=== PATIENT | male | born 1945 | race Caucasian/White ===

== ENCOUNTER 2016-06-15 06:19 | Day surgery (SDC) | payer BC, MEDICAID, MEDICARE, OTHER ==
[2016-06-15] MEDS ORDERED: Lactated Ringers 1,000 ML IV SCH (07:00)
[2016-06-15] MEDS ORDERED: fentaNYL 100 MCG/2 ML SDV ONE (07:35)
[2016-06-15] MEDS ORDERED: Propofol 200 MG/20 ML SDV ONE (07:35)
[2016-06-15] MEDS ORDERED: Midazolam 1 MG/ML 2 ML SDV ONE (07:36)
[2016-06-15 09:23] VITALS: BP 147/77
--- NOTE | 2016-06-18 07:35 | OR ---
DATE OF PROCEDURE: 06/15/2016 PREOPERATIVE DIAGNOSIS: History of adenomatous colon polyps. POSTOPERATIVE DIAGNOSIS: Rectal polyp, history of adenomatous colon polyps. PROCEDURE PERFORMED: Colonoscopy to the cecum with snare cautery polypectomy of rectal polyp. ANESTHESIA: IV anesthesia with monitored anesthesia care. INDICATION: This 70-year-old white male is referred for a colonoscopy. He has a history of adenomatous colon polyps. Apparently, he had a poor colonoscopy prep and he says he still has some polyps in him, and he underwent a 2-day prep this time. I counseled him for a colonoscopy with possible biopsy and/or polypectomy including risks and alternatives, and he gave his informed consent to proceed. DESCRIPTION OF PROCEDURE: The patient was placed in the left lateral decubitus position. IV anesthesia was administered by the Anesthesia Service. Time-out was held. A rectal exam was performed, which was unremarkable. The flexible video Olympus colonoscope was introduced through his anus, up his rectum, and out his colon all the way to the cecum. Once the cecum was reached, the scope was slowly withdrawn examining the mucosa throughout. The prep was good. No mucosal abnormalities were noted until we reached the rectum, here we saw a polyp that was too large to remove using the biopsy forceps. The snare was passed about its base, it was elevated up away from the bowel wall and amputated as electrocautery was applied. The polyp was aspirated through the scope and captured in a polyp trap. The scope was retroflexed in the rectum with the distal rectum appearing unremarkable. The scope was straightened and removed. He tolerated the procedure well. Obie Puckett MD /[id number] MTDJia
== END 2016-06-15 09:30 | disposition home or self-care (01) ==
LOC: JP.SDS 06:19
PROVIDERS: ATTEND Surgery
PROC: 0DBP8ZX Excision of Rectum, Via Natural or Artificial Opening Endoscopic, Diagnostic (ICD-10-PCS; principal; 2016-06-15)
DX: D12.8 Benign neoplasm of rectum (principal); Z88.0 Allergy status to penicillin; Z88.2 Allergy status to sulfonamides
CPT/HCPCS: 45385; 88305; J2250; J2704; J3010; J7120

== ENCOUNTER 2017-07-17 07:06 | Day surgery (SDC) | payer OTHER ==
[~2017-07-17 07:06] MED LIST: Lactated Ringers 1,000 ML IV SCH
[2017-07-17] MEDS ORDERED: Lactated Ringers 1,000 ML IV SCH (07:15)
[2017-07-17] MEDS ORDERED: Midazolam 1 MG/ML 2 ML SDV ONE (08:11)
[2017-07-17] MEDS ORDERED: fentaNYL 100 MCG/2 ML SDV ONE (08:11)
[2017-07-17] MEDS ORDERED: Propofol 200 MG/20 ML SDV ONE (08:11)
--- NOTE | 2017-07-17 09:59 | OR ---
DATE OF PROCEDURE: 07/17/2017 PREOPERATIVE DIAGNOSIS: History of adenomatous colon polyps. POSTOPERATIVE DIAGNOSES: 1. Unremarkable colonoscopy. 2. History of adenomatous colon polyps. SURGEON: Obie Puckett MD. PROCEDURE: Colonoscopy to the cecum. ANESTHESIA: IV anesthesia with monitored anesthesia care. INDICATION: This 71-year-old white male is here for a colonoscopy because of a history of multiple adenomatous polyps in the past. A year ago, he had a large rectal polyp removed. I counseled him for the procedure including risks and alternatives, and he gave his informed consent to proceed. DESCRIPTION OF PROCEDURE: The patient was placed in the left lateral decubitus position. IV anesthesia was administered by the Anesthesia Service. Time-out was held. A rectal exam was performed, which was unremarkable. The flexible video Olympus colonoscope was introduced through his anus, up his rectum, and out his colon all the way to the cecum. Once the cecum was reached, the scope was slowly withdrawn, examining the mucosa throughout. No mucosal abnormalities were noted. The scope was retroflexed in the rectum with the distal rectum appearing unremarkable. The scope was straightened and removed. He tolerated the procedure well. Obie Puckett MD /[id number] MTDD
[2017-07-17 10:19] VITALS: BP 123/86
== END 2017-07-17 10:40 | disposition home or self-care (01) ==
LOC: JP.SDS 07:06
PROVIDERS: ATTEND Surgery
DX: Z09 Encounter for follow-up examination after completed treatment for conditions other than malignant neoplasm (principal); F17.210 Nicotine dependence, cigarettes, uncomplicated; E78.5 Hyperlipidemia, unspecified; J43.9 Emphysema, unspecified; Z86.010 Personal history of colon polyps; Z88.0 Allergy status to penicillin; Z88.2 Allergy status to sulfonamides; Z99.81 Dependence on supplemental oxygen; Z79.899 Other long term (current) drug therapy; Z79.51 Long term (current) use of inhaled steroids
CPT/HCPCS: 45378; J2250; J2704; J3010; J7120

== ENCOUNTER 2019-05-04 07:33 | Emergency (ER) | payer OTHER ==
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
[2019-05-04 09:47] VITALS: BP 145/66; PULSE 84
== END 2019-05-04 09:47 | disposition home or self-care (01) ==
LOC: JP.ED 07:33
DX: S60.512A Abrasion of left hand, initial encounter (principal); R41.3 Other amnesia; F32.9 Major depressive disorder, single episode, unspecified; J44.9 Chronic obstructive pulmonary disease, unspecified; F17.210 Nicotine dependence, cigarettes, uncomplicated; Z79.899 Other long term (current) drug therapy; Z98.49 Cataract extraction status, unspecified eye; Z90.49 Acquired absence of other specified parts of digestive tract; Z98.890 Other specified postprocedural states; Z88.0 Allergy status to penicillin; Z88.2 Allergy status to sulfonamides; V47.5XXA Car driver injured in collision with fixed or stationary object in traffic accident, initial encounter
CPT/HCPCS: 36415; 70450; 70450-26; 80053; 80307; 81001; 85025; 99285-25

== ENCOUNTER 2023-04-11 08:27 | Day surgery (SDC) | payer OTHER ==
[2023-04-11] MEDS: Sodium Chloride 0.9% 1,000 ML IV SCH (08:43)
[2023-04-11] MEDS ORDERED: Propofol 200 MG/20 ML SDV ONE (09:55)
[2023-04-11] MEDS ORDERED: fentaNYL 100 MCG/2 ML SDV ONE (09:55)
[2023-04-11 12:06] VITALS: BP 114/64; PULSE 63
== END 2023-04-11 12:23 | disposition home or self-care (01) ==
LOC: JP.SDS 08:27
PROVIDERS: ATTEND Surgery
DX: Z12.11 Encounter for screening for malignant neoplasm of colon (principal); D12.4 Benign neoplasm of descending colon; J44.89 Other specified chronic obstructive pulmonary disease; E78.5 Hyperlipidemia, unspecified; F32.A Depression, unspecified; F17.210 Nicotine dependence, cigarettes, uncomplicated; Z79.899 Other long term (current) drug therapy
CPT/HCPCS: 45380; J2704; J3010; J7030

== ENCOUNTER 2024-04-09 10:24 | Emergency (ER) | payer OTHER ==
[2024-04-09] MEDS ORDERED: Sodium Chloride 0.9% 10 ML Syringe FLUSH PRN (11:20)
[2024-04-09] MEDS: Sodium Chloride 0.9% 1,000 ML IV ONE ×2 (11:26→12:38)
[2024-04-09 11:36] LABS: BASOPHILS ABSOLUTE AUTO 0.07 K/uL (0.00-0.10); BASOPHILS PERCENT AUTO 0.8 % (0.1-1.3); EOSINOPHILS ABSOLUTE AUTO 0.15 K/uL (0.00-0.40); EOSINOPHILS PERCENT AUTO 1.8 % (0.0-5.4); HEMATOCRIT 35.2 % (38.4-49.7); HEMOGLOBIN 10.9 g/dL (12.9-16.9); IMMATURE GRAN ABSOLUTE AUTO 0.04 K/uL (0.00-0.23); IMMATURE GRAN PERCENT AUTO 0.5 % (0.0-0.7); LYMPHOCYTES ABSOLUTE AUTO 0.85 K/uL (0.8-3.3); MEAN CORPUSCULAR HEMOGLOBIN 23.1 pg (31.6-35.5); MEAN CORPUSCULAR VOLUME 74.6 fL (81.4-99.0); MONOCYTES ABSOLUTE AUTO 0.57 K/uL (0.20-0.90); MONOCYTES PERCENT AUTO 6.7 % (3.3-12.6); NEUTROPHILS ABSOLUTE AUTO 6.78 K/uL (1.0-7.6); NEUTROPHILS PERCENT AUTO 80.2 % (40.0-78.1); PLATELET COUNT,PLT 343 K/uL (130-375); RED BLOOD CELL COUNT 4.72 M/uL (4.14-5.76); WHITE BLOOD CELL COUNT,WBC 8.5 K/uL (3.2-11.0)
[2024-04-09 11:52] LABS: BLOOD UREA NITROGEN,BUN 16 mg/dL (7-18); CARBON DIOXIDE,CO2 25 mmol/L (21-32); CHLORIDE,CL 102 mmol/L (100-108); CREATININE 1.3 mg/dL (0.8-1.3); ESTIMATED GFR 57 mL/min (>60); GLUCOSE RANDOM 85 mg/dL (74-106); POTASSIUM,K 4.7 mmol/L (3.6-5.2); SODIUM,NA 133 mmol/L (140-148)
[2024-04-09 11:55] LABS: ANION GAP 10.7 mmol/L (5.0-14.0)
[2024-04-09] MEDS: Diltiazem 25 MG/5 ML SDV IVPUSH ONE ×2 (12:08→12:39)
[2024-04-09 12:19] VITALS: BP 96/56; PULSE 116
== END 2024-04-09 13:57 | disposition home or self-care (01) ==
LOC: JP.ED 10:24
DX: I48.91 Unspecified atrial fibrillation (principal); J18.9 Pneumonia, unspecified organism; D50.9 Iron deficiency anemia, unspecified; E78.00 Pure hypercholesterolemia, unspecified; J44.89 Other specified chronic obstructive pulmonary disease; F17.210 Nicotine dependence, cigarettes, uncomplicated; Z88.0 Allergy status to penicillin; Z88.8 Allergy status to other drugs, medicaments and biological substances; Z79.51 Long term (current) use of inhaled steroids; Z79.01 Long term (current) use of anticoagulants; Z79.899 Other long term (current) drug therapy
CPT/HCPCS: 36415; 71046; 80048; 85025; 93005; 93010; 96361; 96374; 99284; 99285; J3490

== ENCOUNTER 2024-07-02 13:51 | Emergency (ER) | payer OTHER ==
[2024-07-02] MEDS ORDERED: Metoprolol Tartrate 5 MG in Sodium Chloride 0.9% 50 ML IV ONE (14:38)
[2024-07-02 14:40] LABS: BASOPHILS PERCENT AUTO 0.1 % (0.1-1.3); EOSINOPHILS PERCENT AUTO 0.1 % (0.0-5.4); HEMOGLOBIN 11.3 g/dL (12.9-16.9); IMMATURE GRAN PERCENT AUTO 0.7 % (0.0-0.7); LYMPHOCYTES ABSOLUTE AUTO 0.56 K/uL (0.8-3.3); LYMPHOCYTES PERCENT AUTO 3.8 % (11.4-47.7); MEAN CORPUSCULAR HEMOGLOBIN 22.4 pg (31.6-35.5); MEAN CORPUSCULAR HGB CONC 29.7 g/dL (31.6-35.5); MEAN CORPUSCULAR VOLUME 75.4 fL (81.4-99.0); MONOCYTES ABSOLUTE AUTO 0.79 K/uL (0.20-0.90); MONOCYTES PERCENT AUTO 5.3 % (3.3-12.6); NEUTROPHILS ABSOLUTE AUTO 13.37 K/uL (1.0-7.6); PLATELET COUNT,PLT 412 K/uL (130-375); RED BLOOD CELL COUNT 5.04 M/uL (4.14-5.76); WHITE BLOOD CELL COUNT,WBC 14.8 K/uL (3.2-11.0)
[2024-07-02 14:46] LABS: INR 1.3; PROTHROMBIN TIME 13.2 sec (9.2-10.6)
[2024-07-02] MEDS: Sodium Chloride 0.9% 1,000 ML IV ONE (14:50)
[2024-07-02] MEDS: Metoprolol Tartrate 5 MG/5 ML SDV IV ONE (14:53)
[2024-07-02 14:59] LABS: BASE EXCESS ARTERIAL -3.1 mm/L; BICARBONATE,ARTERIAL 19.4 mmol/L (22.0-26.0); CARBOXYHEMOGLOBIN 2.3 % (0.0-1.6); METHEMOGLOBIN 0.8 %; O2 SATURATION ARTERIAL 84.7 % (95.0-98.0); OXYHEMOGLOBIN 82.1 %; PCO2 ARTERIAL 28.4 mmHg (35.0-42.0); TOTAL HEMOGLOBIN 11.5 g/dL (13.5-18.0)
[2024-07-02 15:03] LABS: A/G RATIO 0.5 (1.2-2.2); ALANINE AMINOTRANSFERASE,ALT 97 U/L (12-78); ALBUMIN 2.3 g/dL (3.4-5.0); ALKALINE PHOSPHATASE 180 U/L (46-116); ANION GAP 16.5 mmol/L (5.0-14.0); ASPARTATE AMNIOTRANSFERASE,AST 89 U/L (15-37); BILIRUBIN TOTAL 1.4 mg/dL (0.2-1.0); BLOOD UREA NITROGEN,BUN 32 mg/dL (7-18); C-REACTIVE PROTEIN 16.17 mg/dL (<0.50); CALCIUM 9.4 mg/dL (8.5-10.1); CARBON DIOXIDE,CO2 22 mmol/L (21-32); CHLORIDE,CL 105 mmol/L (100-108); CREATININE 1.5 mg/dL (0.8-1.3); EST CRCL DRUG DOSING (CG) 37.63 mL/min; ESTIMATED GFR 48 mL/min (>60); GLUCOSE RANDOM 101 mg/dL (74-106); MAGNESIUM 2.3 mg/dL (1.8-2.4); POTASSIUM,K 4.1 mmol/L (3.6-5.2); PRO B-TYPE NATRIUR PEPT,BNPPRO 11878 pg/mL (5-450); PROTEIN TOTAL,TP 6.8 g/dL (6.4-8.2); SODIUM,NA 143 mmol/L (140-148)
[2024-07-02 15:11] LABS: BASOPHILS ABSOLUTE AUTO 0.01 K/uL (0.00-0.10); EOSINOPHILS ABSOLUTE AUTO 0.01 K/uL (0.00-0.40)
[2024-07-02] MEDS: Sodium Chloride 0.9% 80 ML IV ONE (15:42)
[2024-07-02] MEDS: Iopamidol 612 MG/ML 100 ML Bottle IV PRN (15:42)
[2024-07-02 16:01] VITALS: BP 102/74
[2024-07-02] MEDS ORDERED: Azithromycin 500 MG in Sodium Chloride 0.9% 150 ML IV ONE (16:10)
[2024-07-02 16:26] VITALS: PULSE 154
[2024-07-02] MEDS: Azithromycin 500 MG in Sodium Chloride 0.9% 250 ML IV ONE (17:11)
== END 2024-07-02 16:54 | disposition left against medical advice (07) ==
LOC: JP.ED 13:51
DX: J18.9 Pneumonia, unspecified organism (principal); I48.91 Unspecified atrial fibrillation; E78.00 Pure hypercholesterolemia, unspecified; J44.89 Other specified chronic obstructive pulmonary disease; Z88.0 Allergy status to penicillin; Z88.8 Allergy status to other drugs, medicaments and biological substances; Z79.51 Long term (current) use of inhaled steroids; Z79.01 Long term (current) use of anticoagulants; Z79.899 Other long term (current) drug therapy
CPT/HCPCS: 36415; 36600; 71260; 80053; 82803; 83605; 83735; 83880; 84443; 84484; 85025; 85610; 86140; 86850; 86900; 86901; 87040; 87635; 93005; 93010; 96361; 96374; 99284; 99285; J3490; J7030; Q9967; U0002

== ENCOUNTER 2024-07-04 11:21 | Emergency (ER) | payer OTHER ==
[2024-07-04] MEDS ORDERED: Sodium Chloride 0.9% 10 ML Syringe FLUSH PRN (11:26)
[2024-07-04 11:33] LABS: BASE EXCESS ARTERIAL -12.4 mm/L; BICARBONATE,ARTERIAL 12.6 mmol/L (22.0-26.0); CARBOXYHEMOGLOBIN 2.2 % (0.0-1.6); METHEMOGLOBIN 0.8 %; O2 SATURATION ARTERIAL 93.6 % (95.0-98.0); OXYHEMOGLOBIN 90.8 %; PCO2 ARTERIAL 27.1 mmHg (35.0-42.0); TOTAL HEMOGLOBIN 11.5 g/dL (13.5-18.0)
[2024-07-04 11:37] LABS: BASOPHILS ABSOLUTE AUTO 0.04 K/uL (0.00-0.10); BASOPHILS PERCENT AUTO 0.2 % (0.1-1.3); EOSINOPHILS ABSOLUTE AUTO 0.21 K/uL (0.00-0.40); HEMATOCRIT 40.2 % (38.4-49.7); HEMOGLOBIN 11.2 g/dL (12.9-16.9); IMMATURE GRAN ABSOLUTE AUTO 0.33 K/uL (0.00-0.23); IMMATURE GRAN PERCENT AUTO 1.6 % (0.0-0.7); LYMPHOCYTES ABSOLUTE AUTO 0.46 K/uL (0.8-3.3); LYMPHOCYTES PERCENT AUTO 2.2 % (11.4-47.7); MEAN CORPUSCULAR HGB CONC 27.9 g/dL (31.6-35.5); MEAN CORPUSCULAR VOLUME 79.1 fL (81.4-99.0); MONOCYTES ABSOLUTE AUTO 0.82 K/uL (0.20-0.90); MONOCYTES PERCENT AUTO 3.9 % (3.3-12.6); NEUTROPHILS ABSOLUTE AUTO 19.13 K/uL (1.0-7.6); NEUTROPHILS PERCENT AUTO 91.1 % (40.0-78.1); PLATELET COUNT,PLT 418 K/uL (130-375)
[2024-07-04] MEDS: Propofol 200 MG/20 ML SDV IVPUSH ONE ×2 (11:49→12:40)
[2024-07-04 11:51] LABS: RED BLOOD CELL COUNT 5.08 M/uL (4.14-5.76)
[2024-07-04 12:09] LABS: A/G RATIO 0.5 (1.2-2.2); ALANINE AMINOTRANSFERASE,ALT 489 U/L (12-78); ALKALINE PHOSPHATASE 182 U/L (46-116); BILIRUBIN TOTAL 3.3 mg/dL (0.2-1.0); BLOOD UREA NITROGEN,BUN 55 mg/dL (7-18); C-REACTIVE PROTEIN 16.11 mg/dL (<0.50); CALCIUM 9.2 mg/dL (8.5-10.1); CARBON DIOXIDE,CO2 18 mmol/L (21-32); CHLORIDE,CL 110 mmol/L (100-108); CREATININE 2.8 mg/dL (0.8-1.3); ESTIMATED GFR 23 mL/min (>60); GLUCOSE RANDOM 62 mg/dL (74-106); MAGNESIUM 2.6 mg/dL (1.8-2.4); POTASSIUM,K 5.5 mmol/L (3.6-5.2); SODIUM,NA 147 mmol/L (140-148)
[2024-07-04 12:19] LABS: ANION GAP 24.5 mmol/L (5.0-14.0); ASPARTATE AMNIOTRANSFERASE,AST 2471 U/L (15-37)
[2024-07-04 12:20] LABS: LACTIC ACID 10.4 mmol/L (0.4-2.0)
[2024-07-04] MEDS: HYDROmorphone 0.5 MG/0.5 ML Syringe ONE (12:22)
[2024-07-04] MEDS: Etomidate 2 MG/ML 10 ML SDV ONE (12:22)
[2024-07-04] MEDS: Propofol 200 MG/20 ML SDV ONE (12:23)
[2024-07-04] MEDS: Succinylcholine 200 MG/10 ML MDV ONE (12:23)
[2024-07-04] MEDS: HYDROmorphone 0.5 MG/0.5 ML Syringe IVPUSH ONE ×2 (12:24→13:41)
[2024-07-04] MEDS: Sodium Chloride 0.9% 1,000 ML IV SCH ×2 (12:24→13:20)
[2024-07-04] MEDS: propofoL 1,000 MG/100 ML 100 ML IV SCH (12:25)
[2024-07-04] MEDS: Norepinephrine Bit/D5W Premix 4 MG in Premix Bag 1 BAG IV SCH (12:31)
[2024-07-04] MEDS: VANCOmycin 1 GM in Sodium Chloride 0.9% 250 ML IV ONE (12:50)
[2024-07-04 13:11] LABS: BASE EXCESS ARTERIAL -10.5 mm/L; BICARBONATE,ARTERIAL 16.4 mmol/L (22.0-26.0); CARBOXYHEMOGLOBIN 1.4 % (0.0-1.6); METHEMOGLOBIN 0.8 %; O2 SATURATION ARTERIAL 96.2 % (95.0-98.0); OXYHEMOGLOBIN 94.1 %; PCO2 ARTERIAL 42.5 mmHg (35.0-42.0); TOTAL HEMOGLOBIN 10.6 g/dL (13.5-18.0)
[2024-07-04] MEDS: Etomidate 2 MG/ML 10 ML SDV IVPUSH ONE (13:38)
[2024-07-04] MEDS: Succinylcholine 200 MG/10 ML MDV IV ONE (13:39)
[2024-07-04] MEDS: Sodium Bicarbonate 8.4% 50 MEQ/50 ML Syringe IVPUSH ONE (13:41)
[2024-07-04 13:56] LABS: APPEARANCE,URINE CLOUDY (CLEAR); BILIRUBIN,URINE SMALL (NEGATIVE); COLOR,URINE YELLOW (YELLOW); GLUCOSE,URINE NEGATIVE (NEGATIVE); KETONES,URINE NEGATIVE (NEGATIVE); LEUKOCYTE ESTERASE,URINE TRACE (NEGATIVE); NITRITE,URINE NEGATIVE (NEGATIVE); OCCULT BLOOD,URINE MODERATE (NEGATIVE); PH,URINE 5.5 (5.0-8.0); PROTEIN,URINE 100 mg/dL (NEGATIVE)
[2024-07-04 13:57] LABS: AMORPHOUS SEDIMENT,URINE NOT SEEN; BACTERIA,URINE MODERATE; EPITHELIAL CELLS,URINE MODERATE; MUCUS,URINE MODERATE; WBC,URINE 20-30 (0-5)
[2024-07-04 14:52] LABS: AMPHETAMINES SCREEN, URINE NEGATIVE (NEGATIVE); BARBITURATE SCREEN,URINE NEGATIVE (NEGATIVE); BENZODIAZEPINES SCREEN,URINE NEGATIVE (NEGATIVE); METHADONE SCREEN, URINE NEGATIVE (NEGATIVE); METHAMPHETAMINES SCREEN, URINE NEGATIVE (NEGATIVE); OXYCODONE SCREEN,URINE NEGATIVE (NEGATIVE); PROPOXYPHENE SCREEN,URINE NEGATIVE (NEGATIVE); THC SCREEN,URINE 50 NG/ML NEGATIVE (NEGATIVE)
[2024-07-04 19:25] VITALS: BP 107/58; PULSE 97
== END 2024-07-04 15:21 ==
LOC: JP.ED 11:21
DX: A41.9 Sepsis, unspecified organism (principal); R65.21 Severe sepsis with septic shock; J18.9 Pneumonia, unspecified organism; N17.9 Acute kidney failure, unspecified; E78.00 Pure hypercholesterolemia, unspecified; J44.89 Other specified chronic obstructive pulmonary disease; Z79.899 Other long term (current) drug therapy; Z88.0 Allergy status to penicillin; Z88.2 Allergy status to sulfonamides
CPT/HCPCS: 31500; 36415; 36600; 51702; 71045; 74018; 80053; 80305; 81001; 82803; 82947; 83605; 83735; 85025; 85730; 86140; 87040; 87086; 92960; 93005; 96365; 96366; 96368; 96375; 96376; 99291; 99292; J0330; J2704; J3490; J7030; J7050